=== PATIENT | female | born 1970 | race Caucasian/White ===

== ENCOUNTER 2016-08-22 15:37 | Emergency (ER) | payer BC ==
[2016-08-22 15:47] VITALS: BP 146/91
[2016-08-22] MEDS ORDERED: KETOROLAC TROMETHAMINE 60 MG/2 ML VIAL IM ONE ×2 (16:29→16:38)
[2016-08-22] MEDS ORDERED: METHYLPREDNISOLONE ACETATE 80 MG/ML VIAL ONE (17:32)
--- NOTE | 2016-08-22 18:36 | ERNOTE ---
Lower Extremity HPI - Narrative Date of Service: 08/22/16 - General Lower Extremities Pain: knee: right Time Seen by Provider: 08/22/16 16:14 Source: patient Exam Limitations: no limitations - Immun/Allergies/Home Medications Immunizations: IMMUNIZATION HX Immunizations Up to Date Yes History of Influenza Vaccine No Hx Pneumococcal Vaccination No Allergies/Adverse Reactions: Allergies Allergy/AdvReac Type Severity Reaction Status Date / Time sulfamethoxazole Allergy Severe Shortness Verified 08/22/16 15:47 [From Bactrim] of Breath trimethoprim [From Bactrim] Allergy Severe Shortness Verified 08/22/16 15:47 of Breath Home Medications: HOME MEDICATIONS HYDROcodone/ACETAMINOPHEN [Hydrocodon-Acetaminophen 5-325] 1 each PO TID PRN # 20 tablet 08/22/16 [Last Taken Unknown] - History of Present Illness Narrative: patient presents to the ER for right knee pain. states she had been doing exercises the last few weeks and woke up last week with right knee pain that has not gotten better. Date (Duration): 08/22/16 Occurred: last week Location of Incident: home Method of Injury: Reports: sports injury - patient states she has been doing a lot of walking squats Loss of Consciousness: Reports: no loss of consciousness Modifying Factors - (Worsens): Reports: movement Associated Symptoms: Denies: popping sensation Other Injuries: Reports: none Subsequent Symptoms: Denies: sensory loss, numbness, motor loss, bowel/bladder problem Review of Systems - Review of Systems Constitutional: Present: no symptoms reported EYE: Present: no symptoms reported ENT: Present: no symptoms reported Respiratory: Present: no symptoms reported Cardiology: Present: no symptoms reported Gastrointestinal/Abdominal: Present: no symptoms reported Genitourinary: Present: no symptoms reported Musculoskeletal: Present: See HPI, joint pain, joint swelling Skin: Present: no symptoms reported Neurological: Present: no symptoms reported Endocrine: Present: no symptoms reported Hematologic/Lymphatic: Present: no symptoms reported Psych: Present: no symptoms reported All Other Systems: All systems neg except as marked - Patient's Past Medical History Patient History - Medical: Anxiety Patient History - Cardiac/Respiratory: Sleep Apnea Patient History - Cancer: No Hx of Cancer Patient History - Surgical Procedures: Cholecystectomy, , D & C, Gastric Bypass, Other Patient History - Other: None LMP (females 10-50): Menopausal - Social History Living Situations: home Abuse History: No History of abuse Psych History: Hx of Anxiety Smoking Status: Never smoker Alcohol Use: none Drug Use: none - Immunizations Immunizations Up to Date: Yes Hx Pneumococcal Vaccination: No History of Influenza Vaccine: No Physical Exam - Physical Exam Narrative: patients right knee is slightly more swollen than left. pain with internal rotation, negative drawer test. prominent varicose veins observed to bilateral legs. pain with ambulation General Appearance: Present: wd/wn, alert, mild distress Eye Exam: Normal inspection: bilateral Ears, Nose, Throat: Present: normal ENT inspection, normal pharynx Neck: Present: normal inspection, nontender Respiratory: Present: no respiratory distress, normal breath sounds, no accessory muscle use, chest nontender, lungs clear Cardiovascular/Chest: Present: regular rate, rhythm, no murmur, normal peripheral pulses Gastrointestinal/Abdominal: Present: normal bowel sounds, nontender, soft, no organomegaly Back Exam: Present: normal inspection, normal range of motion, no vertebral tenderness Extremity Exam: Present: decreased range of motion, pelvis stable, joint swelling. Absent: pedal edema, bony tenderness, joint redness Neurological Exam: Present: alert, oriented, normal mood/affect, no motor/ sensory deficits Skin Exam: Present: normal color, warm/dry Lymphatic Exam: Present: no adenopathy ED Progress - Vital Signs Patient's Vital Signs:: I have reviewed the patient's vital signs. Vital Signs: Vital Signs 08/22/16 15:42 Temperature 37.1 C Pulse Rate 67 Respiratory 16 Rate Blood Pressure 146/91 O2 Sat by Pulse 98 Oximetry - X-Ray X-Ray #1 X-Ray: knee Interpretation: Interp. by me, Reviewed by me X-ray Comments: no acute fracture - CT/Ultrasound CT/Ultrasound Narrative: Reason for Exam: increased swelling Radiological Report : Exam Date: 08/22/2016 16:28 Ordering Physician: Ivan Ferraro HISTORY: Increased right lower extremity swelling. Pain behind the knee. TECHNIQUE: Transcutaneous grayscale, color and duplex ultrasound images of the right lower extremity veins were obtained. COMPARISONS: None available. FINDINGS: US Venous Ext Limited RT * Right common femoral, greater saphenous, superficial femoral, popliteal, posterior tibial veins demonstrates normal appearance, with normal color flow. IMPRESSION: No sonographic evidence of right lower extremity deep vein thrombosis. Electronically signed by Jacqueline Barry M.D.. - Progress/Reassessment Chief Complaint: Lower Extremity Pain/ Injury Progress:: Improved Plan - Plan Plan: patient is to follow up with ortho r/t her knee discomfort. Feel that this patient would benefit from an MRI of her right knee. Departure Clinical Impression: Knee pain, right Qualifiers: Chronicity: acute Qualified Code(s): M25.561 - Pain in right knee - Departure Disposition: Home Follow Up Needed Condition: Stable Instructions: Knee Pain, Knee Sprain, [id number] Additional Instructions: Community previous home medications as directed. Follow-up with orthopedist or primary care the next few days. Return to the emergency room if swelling continues her symptoms persist or not able to be controlled with pain medication. Referrals: Pool Pineda MD [Primary Care Provider] - Prescriptions: HYDROcodone/ACETAMINOPHEN [Hydrocodon-Acetaminophen 5-325] 1 each PO TID PRN # 20 tablet PRN Reason: Pain
== END 2016-08-22 18:38 | disposition home or self-care (01) ==
LOC: ER 15:37
DX: M25.561 Pain in right knee (principal)